=== PATIENT | female | born 1985 | race African-American/Black ===

== ENCOUNTER 2016-12-01 05:32 | Emergency (ER) | payer SELFPAY ==
[~2016-12-01] VITALS: Ht 180.3 cm; Wt 111.0 kg
[2016-12-01 05:38] VITALS: Ht 180.3 cm; Wt 111.0 kg
== END 2016-12-01 06:40 | disposition left against medical advice (07) ==
LOC: E/R 05:32
DX: Z53.21 Procedure and treatment not carried out due to patient leaving prior to being seen by health care provider (principal)